=== PATIENT | male | born 1940 | race Caucasian/White ===

== ENCOUNTER 2017-10-11 18:10 | Emergency (ER) | payer OTHER ==
[~2017-10-11] VITALS: Ht 180.3 cm; Wt 140.6 kg
--- OUTSIDE RECORDS SUMMARY | ~2017-10-11 | XMS | Clinical Summary ---
Demographics + + + | Address | [address] | | | [place] [address] | + + + | Home Phone | | + + + | Preferred Language | Unknown | + + + | Marital Status | Single | + + + | Denominational Affiliation | Unknown | + + + | Race | Unknown | + + + | Ethnic Group | Other Race | + + + Author + + + | Author | NON REVENUE LOCATIONS | + + + | Organization | NON REVENUE LOCATIONS | + + + | Address | Unknown | + + + | Phone | Unavailable | + + + Care Team Providers + +------+ + | Care Rehab Nurse Name | Role | Phone | + +------+ + | No Pcp Per Patient | PP | Unavailable | + +------+ + Source Comments BEBETO is fully live on both [facility] and [facility] In[facility] Allergies Not on File Current Medications Not on file Active Problems Not on file Social History + +-------+ +--------+------+ | Tobacco Use | Types | Packs/Day | Years | Date | | | | | Used | | + +-------+ +--------+------+ | Never Assessed | | | | | + +-------+ +--------+------+ + + + | Sex Assigned at | Date Recorded | | | | + + + | Not on file | | + + + Plan of Treatment + + + + + | Health Maintenance | Due Date | Last Done | Comments | + + + + + | INFLUENZA VACCINE | | | | | (FLU SHOT) | 7 | | | + + + + + Results Not on filefrom Last 3 Months"
--- OUTSIDE RECORDS SUMMARY | ~2017-10-11 | XMS | Clinical Summary ---
Demographics + + + | Address | [address] | | | [place] [address] | + + + | Home Phone | | + + + | Preferred Language | Unknown | + + + | Marital Status | Single | + + + | Lutheran Affiliation [...] Team Providers + +------+ + | Care News Internship Name | Role | Phone | + +------+ + | No Pcp Per Patient | PP | Unavailable | + +------+ + Source Comments [facility] both [facility] and [facility] Allergies Not on File Current Medications Not [...]
[~2017-10-11 18:10] MED LIST: ALLOPURINOL100 MG PO; AMLODIPINE BESYL5 MG PO; COZAAR100 MG PO; CYCLOBENZAPRINE10 MG PO; FLUOXETINE HCL20 MG PO; GABAPENTIN300 MG PO; GLIPIZIDE XL10 MG PO; HYDROCHLOROTHIA25 MG PO; LANTUS100 UNITS/ SUB-Q; LUBRICANT EYE1 EACH OP; METOPROLOL TART50 MG PO; MINIPRESS5 MG PO; OMEPRAZOLE20 MG PO; OXYCODON-ACETA1 EAC2 PO; PRAVACHOL40 MG PO; SUMATRIPTAN SUC50 MG PO; SYNTHROID100 MCG PO; TRAZODONE HCL150 MG PO; VITAMIN B-121000 MCG PO; WARFARIN SODIUM5 MG PO; XARELTO10 MG PO
[2017-10-11] MEDS ORDERED: NORCO 5-325 TA1 EACH PO (18:47)
== END 2017-10-11 19:05 | disposition home or self-care (01) ==
LOC: ED 18:10
PROC: 2W3PX1Z Immobilization of Left Upper Leg using Splint (ICD-10-PCS; principal; 2017-10-11)
DX: S83.92XA Sprain of unspecified site of left knee, initial encounter (principal); E11.40 Type 2 diabetes mellitus with diabetic neuropathy, unspecified; I10 Essential (primary) hypertension; E03.9 Hypothyroidism, unspecified; F41.8 Other specified anxiety disorders; E66.9 Obesity, unspecified; Z79.899 Other long term (current) drug therapy; Z79.4 Long term (current) use of insulin; W19.XXXA Unspecified fall, initial encounter
CPT/HCPCS: 29505; 73560; 99283

== ENCOUNTER 2021-04-07 14:57 | Emergency (ER) | payer OTHER ==
[~2021-04-07] VITALS: Ht 180.3 cm; Wt 127.5 kg
[~2021-04-07 14:57] MED LIST changes: +BUSPIRONE HCL10 MG PO; +HYDROXYZINE HCL50 MG PO; +INSULIN SYRING1 EA11; +MECLIZINE HCL25 MG PO; +METOPROLOL TART25 MG PO; +NORCO 5-325 TA1 EACH PO
== END 2021-04-07 20:13 | disposition home or self-care (01) ==
LOC: ED 14:57
DX: U07.1 COVID-19 (principal); E11.9 Type 2 diabetes mellitus without complications; I10 Essential (primary) hypertension; M10.9 Gout, unspecified; E03.9 Hypothyroidism, unspecified; E66.9 Obesity, unspecified; Z87.891 Personal history of nicotine dependence; Z79.899 Other long term (current) drug therapy
CPT/HCPCS: 71045; 80053; 85025; 99285-25; C9803; M0243; Q0244; U0003

== ENCOUNTER 2023-04-29 15:23 | Emergency (ER) | payer OTHER ==
[~2023-04-29] VITALS: Ht 180.3 cm; Wt 127.5 kg
--- OUTSIDE RECORDS SUMMARY | ~2023-04-29 | XMS | Continuity of Care Document ---
Demographics + + + | Address | [address] | | | [place] [address] | + + + | Preferred Language | Unknown | + + + | Marital Status | | + + + | Lutheran Affiliation | Unknown | + + + | Race | White | + + + | Ethnic Group | Not or | + + + Author + + + | Author | [facility] | + + + | Organization | [facility] | + + + | Address | [address] | | | [place] [address] | + + + | Phone | | + + + Care Team Providers + + + + | Care Director Biomedical Engineering Name | Role | Phone | + + + + Unavailable | Unavailable | + + + + Unavailable | Unavailable | + + + + Allergies No information. Encounters No information. Functional Status No information. Immunizations No information. Medications + + + + | date | description | facility | + + + + | 2013-12-07 00:00 | OXYCODONE | [facility] | | | HCL/ACETAMINOPHEN | | + + + + | 2023-02-09 00:00 | RIVAROXABAN | [facility] | + + + + | 2023-02-09 00:00 | CARBOXYMETHYLCELLULOSE | [facility] | | | SODIUM | | + + + + | 2023-02-09 00:00 | ALLOPURINOL | [facility] | + + + + | 2023-02-09 00:00 | AMLODIPINE BESYLATE | [facility] | + + + + | 2023-02-09 00:00 | OMEPRAZOLE | [facility] | + + + + | 2023-02-09 00:00 | PRAZOSIN HCL | [facility] | + + + + | 2023-02-09 00:00 | CYANOCOBALAMIN (VITAMIN | [facility] | | | B-12) | | + + + + | 2023-02-09 00:00 | FLUOXETINE HCL | [facility] | + + + + | 2023-02-09 00:00 | GABAPENTIN | [facility] | + + + + | 2023-02-09 00:00 | HYDROCHLOROTHIAZIDE | [facility] | + + + + | 2023-02-09 00:00 | SUMATRIPTAN SUCCINATE | [facility] | + + + + | 2023-02-09 00:00 | GLIPIZIDE | [facility] | + + + + | 2013-12-07 00:00 | CYCLOBENZAPRINE HCL | [facility] | + + + + | 2023-02-09 00:00 | WARFARIN SODIUM | [facility] | + + + + | 2023-02-09 00:00 | TRAZODONE HCL | [facility] | + + + + | 2017-10-11 00:00 | HYDROCODONE | [facility] | | | BIT/ACETAMINOPHEN | | + + + + | 2023-02-09 00:00 | BUSPIRONE HCL | [facility] | + + + + | 2023-02-09 00:00 | METOPROLOL TARTRATE | [facility] | + + + + | 2023-02-09 00:00 | PRAVASTATIN SODIUM | [facility] | + + + + | 2023-02-09 00:00 | LEVOTHYROXINE SODIUM | [facility] | + + + + | 2023-02-09 00:00 | LOSARTAN POTASSIUM | [facility] | + + + + | 2023-02-09 00:00 | HYDROXYZINE HCL | [facility] | + + + + | 2023-02-09 00:00 | MECLIZINE HCL | [facility] | + + + + Problems + + + + | date | description | facility | + + + + | 2017-10-11 00:00 | Sprain of left knee | [facility] | + + + + | 2021-04-07 00:00 | Infection due to severe | [facility] | | | acute respiratory syndrome | | | | coronavirus 2 (SARS-CoV-2) | | + + + + | 2023-02-09 00:00 | Chest pain | [facility] | + + + + | 2023-02-09 13:16 | HYPOTHYROIDISM, | [facility] | | | UNSPECIFIED | | + + + + | 2023-02-09 13:16 | TYPE 2 DIABETES MELLITUS | [facility] | | | WITHOUT COMPLICATIONS | | + + + + | 2023-02-09 13:16 | OBESITY, UNSPECIFIED | [facility] | + + + + | 2023-02-09 13:16 | Essential (primary) | [facility] | | | hypertension | | + + + + | 2023-02-09 13:16 | OTHER CHEST PAIN | [facility] | + + + + | 2023-02-09 13:16 | CHIEF OPERATIONS OFFICER (CURRENT) USE OF | [facility] | | | ANTITHROMBOTICS/ANTIPLA | | + + + + | 2023-02-09 13:16 | HORMONE REPLACEMENT | [facility] | | | THERAPY | | + + + + | 2023-02-09 13:16 | OTHER CARE HOME (CURRENT) | [facility] | | | DRUG THERAPY | | + + + + | 2023-02-09 13:16 | PERSONAL HISTORY OF | [facility] | | | NICOTINE DEPENDENCE | | + + + + Procedures No information. Results/Labs +--------+--------+ +---------+--------+---------+ | test | date | facility | value | unit | notes | +--------+--------+ +---------+--------+---------+ + + | Result panel 1 | + + + + + +-------+ + + | | 2023-02-09 | [facility] | 8.0 | (missing) | (missing) | | (unavailable | [facility]40:07 [facility] | | | | + + + +-------+ + + + + | Result panel 2 | + + + + + +--------+ + + | | 2023-02-09 | [facility] | 50.4 | (missing) | (missing) | | (unavailable | [facility] | | | | + + + +--------+ + + + + | Result panel 3 | + + + + + +--------+ + + | | 2023-02-09 | [facility] | 38.2 | (missing) | (missing) | | (unavailable | [facility] | | | | + + + +--------+ + + + + | Result panel 4 | + + + + + +-------+ + + | | 2023-02-09 | [facility] | 8.2 | (missing) | (missing) | | (unavailable | [facility] | | | | + + + +-------+ + + + + | Result panel 5 | + + + + + +-------+ + + | | 2023-02-09 | [facility] | 2.4 | (missing) | (missing) | | (unavailable | [facility] | | | | + + + +-------+ + + + + | Result panel 6 | + + + + + +-------+ + + | | 2023-02-09 | [facility] | 0.8 | (missing) | (missing) | | (unavailable | [facility] | | | | + + + +-------+ + + + + | Result panel 7 | + + + + + +-------+---------+ + | | 2023-02-09 | [facility] | 272 | mg/dL | (missing) | | (unavailable | [facility]40[facility]07 [facility] | | | | + + + +-------+---------+ + + + | Result panel 8 | + + + + + +------+---------+ + | | 2023-02-09 | [facility] | 16 | mg/dL | (missing) | | (unavailable | [facility] | | | | + + + +------+---------+ + + + | Result panel 9 | + + + + + +--------+---------+ + | | 2023-02-09 | [facility] | 1.29 | mg/dL | (missing) | | (unavailable | [facility] | | | | + + + +--------+---------+ + + + | Result panel 10 | + + + + + +--------+ + + | | 2023-02-09 | [facility] | 5.09 | (missing) | (missing) | | (unavailable | [facility] | | | | + + + +--------+ + + + + | Result panel 11 | + + + + + +------+ + + | | 2023-02-09 | [facility] | 56 | (missing) | (missing) | | (unavailable | [facility] | | | | + + + +------+ + + + + | Result panel 12 | + + + + + +---------+ + + | | 2023-02-09 | [facility] | 12.40 | (missing) | (missing) | | (unavailable | [facility] | | | | + + + +---------+ + + + + | Result panel 13 | + + + + + +-------+ + + | | 2023-02-09 | [facility] | 138 | (missing) | (missing) | | (unavailable | [facility]40[facility]07 [facility] | | | | + + + +-------+ + + + + | Result panel 14 | + + + + + +-------+ + + | | 2023-02-09 | [facility] | 4.5 | (missing) | (missing) | | (unavailable | [facility]40[facility]07 [facility] | | | | + + + +-------+ + + + + | Result panel 15 | + + + + + +-------+ + + | | 2023-02-09 | [facility] | 103 | (missing) | (missing) | | (unavailable | [facility]40[facility]07 [facility] | | | | + + + +-------+ + + + + | Result panel 16 | + + + + + +------+ + + | | 2023-02-09 | [facility] | 25 | (missing) | (missing) | | (unavailable | [facility]40[facility]07 [facility] | | | | + + + +------+ + + + + | Result panel 17 | + + + + + +--------+ + + | | 2023-02-09 | [facility] | 14.5 | (missing) | (missing) | | (unavailable | [facility]40[facility] | | | | + + + +--------+ + + + + | Result panel 18 | + + + + + +-------+---------+ + | | 2023-02-09 | [facility] | 8.4 | mg/dL | (missing) | | (unavailable | [facility]40[facility]07 [facility] | | | | + + + +-------+---------+ + + + | Result panel 19 | + + + + + +-------+---------+ + | | 2023-02-09 | [facility] | 1.8 | mg/dL | (missing) | | (unavailable | [facility]40[facility]07 [facility] | | | | + + + +-------+---------+ + + + | Result panel 20 | + + + + + +-------+ + + | | 2023-02-09 | [facility] | 6.4 | (missing) | (missing) | | (unavailable | [facility]40[facility]07 [facility] | | | | + + + +-------+ + + + + | Result panel 21 | + + + + + +--------+ + + | | 2023-02-09 | [facility] | 15.0 | (missing) | (missing) | | (unavailable | [facility]40[facility]07 [facility] | | | | + + + +--------+ + + + + | Result panel 22 | + + + + + +-------+ + + | | 2023-02-09 | [facility] | 3.2 | (missing) | (missing) | | (unavailable | [facility]40[facility]07 [facility] | | | | + + + +-------+ + + + + | Result panel 23 | + + + + + +-------+ + + | | 2023-02-09 | [facility] | 3.2 | (missing) | (missing) | | (unavailable | [facility]40[facility]07 [facility] | | | | + + + +-------+ + + + + | Result panel 24 | + + + + + +--------+ + + | | 2023-02-09 | [facility] | 1.00 | (missing) | (missing) | | (unavailable | [facility]40[facility]07 [facility] | | | | + + + +--------+ + + + + | Result panel 25 | + + + + + +-------+ + + | | 2023-02-09 | [facility] | 0.7 | (missing) | (missing) | | (unavailable | [facility] | | | | + + + +-------+ + + + + | Result panel 26 | + + + + + +------+ + + | | 2023-02-09 | [facility] | 35 | (missing) | (missing) | | (unavailable | [facility]40[facility]07 [facility] | | | | + + + +------+ + + + + | Result panel 27 | + + + + + +------+ + + | | 2023-02-09 | [facility] | 31 | (missing) | (missing) | | (unavailable | [facility]40[facility]07 [facility] | | | | + + + +------+ + + + + | Result panel 28 | + + + + + +------+ + + | | 2023-02-09 | [facility] | 47 | (missing) | (missing) | | (unavailable | [facility]40:07 [facility] | | | | + + + +------+ + + + + | Result panel 29 | + + + + + +--------+ + + | | 2023-02-09 | [facility] | 14.9 | (missing) | (missing) | | (unavailable | [facility]40[facility]07 [facility] | | | | + + + +--------+ + + + + | Result panel 30 | + + + + + +--------+ + + | | 2023-02-09 | [facility] | 43.9 | (missing) | (missing) | | (unavailable | [facility]40[facility]07 [facility] | | | | + + + +--------+ + + + + | Result panel 31 | + + + + + +--------+ + + | | 2023-02-09 | [facility] | 86.2 | (missing) | (missing) | | (unavailable | [facility]40[facility]07 [facility] | | | | + + + +--------+ + + + + | Result panel 32 | + + + + + +--------+ + + | | 2023-02-09 | [facility] | 29.4 | (missing) | (missing) | | (unavailable | [facility]40[facility]07 [facility] | | | | + + + +--------+ + + + + | Result panel 33 | + + + + + +--------+ + + | | 2023-02-09 | [facility] | 34.1 | (missing) | (missing) | | (unavailable | [facility]40[facility]07 [facility] | | | | + + + +--------+ + + + + | Result panel 34 | + + + + + +--------+ + + | | 2023-02-09 | [facility] | 13.8 | (missing) | (missing) | | (unavailable | [facility]40[facility]07 [facility] | | | | + + + +--------+ + + + + | Result panel 35 | + + + + + +-------+ + + | | 2023-02-09 | [facility] | 221 | (missing) | (missing) | | (unavailable | [facility]40[facility]07 [facility] | | | | + + + +-------+ + + + + | Result panel 36 | + + + + + +--------+ + + | | 2023-02-09 | [facility] | 13.3 | (missing) | (missing) | | (unavailable | [facility]00:07 [facility] | | | | + + + +--------+ + + + + | Result panel 37 | + + + + + +--------+ + + | | 2023-02-09 | [facility] | 1.07 | (missing) | (missing) | | (unavailable | [facility]00[facility]07 [facility] | | | | + + + +--------+ + + Social History No information. Vital Signs + + + +---------+ | date | measurement | value | units | + + + +---------+ | 2023-02-09 00:00 | BMI | 39.2 | kg/m2 | + + + +---------+ | 2023-02-09 00:00 | BP_diastolic | 65 | mmHg | + + + +---------+ | 2023-02-09 00:00 | BP_systolic | 141 | mmHg | + + + +---------+ | 2023-02-09 00:00 | heart_rate | 79 | /min | + + + +---------+ | 2023-02-09 00:00 | height_metric | 180.34 | cm | + + + +---------+ | 2023-02-09 00:00 | height_standard | 71 | in | + + + +---------+ | 2023-02-09 00:00 | o2_saturation | 98 | % | + + + +---------+ | 2023-02-09 00:00 | respiration_rate | 16 | /min | + + + +---------+ | 2023-02-09 00:00 | temperature_metric | 37.06 | C | | | | | | + + + +---------+ | 2023-02-09 00:00 | | 98.7 | F | | | temperature_standar | | | | | d | | | + + + +---------+ | 2023-02-09 00:00 | weight_metric | 127.46 | kg | + + + +---------+ | 2023-02-09 00:00 | weight_standard | 281 | lb | + + + +---------+"
[2023-04-29] MEDS ORDERED: ELIQUIS5 MG PO (16:14)
[2023-04-29] MEDS ORDERED: ASPIRIN81 MG PO (16:14)
[2023-04-29] MEDS ORDERED: LANTUS100 UNITS/ SUB-Q (16:16)
[2023-04-29] MEDS ORDERED: LIDOCAINE1 EACH TD (16:17)
[2023-04-29] MEDS ORDERED: MELATONIN3 MG PO (16:18)
[2023-04-29] MEDS ORDERED: REMERON15 MG PO (16:18)
[2023-04-29] MEDS ORDERED: EFFEXOR XR37.5 MG PO (16:19)
[2023-04-29] MEDS ORDERED: TERBINAFINE15 G1 TOP (16:19)
[2023-04-29] MEDS ORDERED: CEPHALEXIN500 M1 PO (17:06)
[2023-04-29 17:33] VITALS: BP 160/62
== END 2023-04-29 17:34 | disposition home or self-care (01) ==
LOC: ED 15:23
DX: S92.412A Displaced fracture of proximal phalanx of left great toe, initial encounter for closed fracture (principal); E11.42 Type 2 diabetes mellitus with diabetic polyneuropathy; I10 Essential (primary) hypertension; E03.9 Hypothyroidism, unspecified; E66.9 Obesity, unspecified; I48.91 Unspecified atrial fibrillation; F32.A Depression, unspecified; F41.9 Anxiety disorder, unspecified; Z79.4 Long term (current) use of insulin; Z79.01 Long term (current) use of anticoagulants; Z79.890 Hormone replacement therapy; Z79.899 Other long term (current) drug therapy; Z87.891 Personal history of nicotine dependence; Z68.39 Body mass index [BMI] 39.0-39.9, adult; X58.XXXA Exposure to other specified factors, initial encounter
CPT/HCPCS: 73630

== ENCOUNTER 2024-01-30 13:46 | Emergency (ER) | payer OTHER ==
[~2024-01-30] VITALS: Ht 180.3 cm; Wt 115.0 kg
[~2024-01-30 13:46] MED LIST changes: +AMOX TR-K CLV1 EAC1 PO; +ASPIRIN81 MG PO; +BUSPIRONE HCL5 MG PO; +CEPHALEXIN500 M1 PO; +DAPTOMYCIN500 MG IV; +DOXYCYCLINE HY100 MG PO; +EFFEXOR XR75 MG PO; +ELIQUIS5 MG PO; +GABAPENTIN100 MG PO; +HUMALOG100 UNITS/ SUB-Q; +KEPPRA500 MG PO; +LEVOTHYROXINE100 MCG PO; +LIDOCAINE1 EACH TD; +LOSARTAN POTASS25 MG PO; +MELATONIN3 MG PO; +MINIPRESS2 MG PO; -MINIPRESS5 MG PO; +MIRTAZAPINE15 MG PO; +PANTOPRAZOLE SO40 MG PO; +PRAZOSIN HCL1 MG PO; +REMERON30 MG PO; +TERBINAFINE15 G1 TOP; +VITAMIN D325 MCG PO
--- OUTSIDE RECORDS SUMMARY | 2024-01-30 13:48 | XMS ---
PreManage Notification: HALIMA MCGHEE Security Curb Hop Events No recent Security Events currently on file CRITERIA MET - Group Notification - [facility] - Has Care Guidelines CARE PROVIDERS MÓNICA ALMANZA Nurse Practitioner: Family Current PHONE: [phone] FAITH SHARP Animal Rescuer Current TIMMY GAMING PHONE: [phone] Guidelines Source: [facility] Guidelines Date: 11/20/2023 Care Coordination: Two weeks ago patient went AMA from SNF. \T\nbsp;He has been noncompliant with PCP follow up visits. \T\nbsp;[facility] is [facility]. \T\nbsp;Due to noncompliance the local SNFs are turning this patient down for verbal and physically aggressive behavior. \T\nbsp;Please contact case management when he needs disposition from the ER. \T\nbsp; E.D. VISIT COUNT (12 MO.) 7 [facility] TOTAL 7 NOTE: Visits indicate total known visits. ED/UCC VISIT TRACKING (12 MO.) 01/30/2024 13:47 [facility] [place] TYPE: Emergency COMPLAINT: - SWALLOWING PROBLEM 12/11/2023 13:26 [facility] [place] TYPE: Emergency COMPLAINT: - FALL DIAGNOSES: - Encounter for change or removal of surgical wound dressing - Essential (primary) hypertension - Hormone replacement therapy - Hypothyroidism, unspecified - longterm (current) use of aspirin - Obesity, unspecified - Other custodial (current) drug therapy - Personal history of nicotine dependence - Type 2 diabetes mellitus without complications 11/25/2023 14:47 [facility] [place] TYPE: Emergency COMPLAINT: - FALL DIAGNOSES: - Acquired absence of left leg below knee - Dehiscence of amputation stump - Essential (primary) hypertension - long term acute care registered nurse (current) use of anticoagulants - longterm (current) use of aspirin - longterm (current) use of insulin - Obesity, unspecified - Other custodial (current) drug therapy - Personal history of nicotine dependence - Type 2 diabetes mellitus without complications 11/11/2023 16:41 [facility] [place] TYPE: Emergency COMPLAINT: - EXTREMITY 11/01/2023 21:13 [facility] [place] TYPE: Emergency COMPLAINT: - WEAKNESS 04/29/2023 15:24 [facility] [place] TYPE: Emergency COMPLAINT: - LT TOE INJURY DIAGNOSES: - Anxiety disorder, unspecified - Body mass index [BMI] 39.0-39.9, adult - Depression, unspecified - Displaced fracture of proximal phalanx of left great toe, initial encounter for closed fracture - Essential (primary) hypertension - Exposure to other specified factors, initial encounter - Hormone replacement therapy - Hypothyroidism, unspecified - longterm (current) use of anticoagulants - longterm (current) use of insulin - Obesity, unspecified - Other custodial (current) drug therapy - Pain in left toe(s) - Personal history of nicotine dependence - Type 2 diabetes mellitus with diabetic polyneuropathy - Unspecified atrial fibrillation 02/09/2023 13:16 [facility] [place] TYPE: Emergency COMPLAINT: - CHEST PAIN DIAGNOSES: - Essential (primary) hypertension - Hormone replacement therapy - Hypothyroidism, unspecified - longterm (current) use of antithrombotics/antiplatelets - Obesity, unspecified - Other chest pain - Other custodial (current) drug therapy - Personal history of nicotine dependence - Type 2 diabetes mellitus without complications INPATIENT VISIT TRACKING (12 MO.) 11/13/2023 08:19 [facility] [place] TYPE: [facility] COMPLAINT: - CELLULITIS DIAGNOSES: - Anxiety disorder, unspecified - Anxiety disorder, unspecified - Body mass index [BMI] 30.0-30.9, adult - Body mass index [BMI] 30.0-30.9, adult - Cataract extraction status, right eye - Cataract extraction status, right eye - Cellulitis of left lower limb - Depression, unspecified - Depression, unspecified - Essential (primary) hypertension - Essential (primary) hypertension - Gout, unspecified - Gout, unspecified - Hormone replacement therapy - Hormone replacement therapy - Hypothyroidism, unspecified - Hypothyroidism, unspecified - Insomnia, unspecified - Insomnia, unspecified - long term acute care registered nurse (current) use of anticoagulants - long term acute care registered nurse (current) use of anticoagulants - long term acute care registered nurse (current) use of aspirin - long term acute care registered nurse (current) use of aspirin - longterm (current) use of insulin - longterm (current) use of insulin - Obesity, unspecified - Obesity, unspecified - Other custodial (current) drug therapy - Other custodial (current) drug therapy - Other osteomyelitis, ankle and foot - Other osteomyelitis, ankle and foot - Other specified postprocedural states - Other specified postprocedural states - Personal history of nicotine dependence - Personal history of nicotine dependence - Type 2 diabetes mellitus with diabetic neuropathy, unspecified - Type 2 diabetes mellitus with diabetic neuropathy, unspecified - Type 2 diabetes mellitus with foot ulcer - Type 2 diabetes mellitus with foot ulcer - Type 2 diabetes mellitus with other specified complication - Type 2 diabetes mellitus with other specified complication - Unspecified atrial fibrillation - Unspecified atrial fibrillation 11/02/2023 00:54 [facility] TYPE[facility] COMPLAINT: - CELLULITIS DIAGNOSES: - Anxiety disorder, unspecified - Anxiety disorder, unspecified - Cataract extraction status, right eye - Cataract extraction status, right eye - Cellulitis of left lower limb - Cutaneous abscess of left foot - Cutaneous abscess of left foot - Depression, unspecified - Depression, unspecified - Elevation of levels of liver transaminase levels - Elevation of levels of liver transaminase levels - Essential (primary) hypertension - Essential (primary) hypertension - Gout, unspecified - Gout, unspecified - Hormone replacement therapy - Hormone replacement therapy - Hypothyroidism, unspecified - Hypothyroidism, unspecified - Insomnia, unspecified - Insomnia, unspecified - long term acute care registered nurse (current) use of antibiotics - longterm (current) use of antibiotics - longterm (current) use of anticoagulants - longterm (current) use of anticoagulants - longterm (current) use of aspirin - long term acute care registered nurse (current) use of aspirin - longterm (current) use of insulin - longterm (current) use of insulin - 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 - 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 - Obesity, unspecified - Obesity, unspecified - Other chronic pain - Other chronic pain - Other long wall shear operator (current) drug therapy - Other long wall shear operator (current) drug therapy - Other specified postprocedural states - Other specified postprocedural states - Personal history of nicotine dependence - Personal history of nicotine dependence - Type 2 diabetes mellitus with diabetic neuropathy, unspecified - Type 2 diabetes mellitus with diabetic neuropathy, unspecified - Type 2 diabetes mellitus with foot ulcer - Type 2 diabetes mellitus with foot ulcer - Type 2 diabetes mellitus with hyperglycemia - Type 2 diabetes mellitus with hyperglycemia - Type 2 diabetes mellitus with other skin complications - Type 2 diabetes mellitus with other skin complications - Unspecified atrial fibrillation - Unspecified atrial fibrillation - Unspecified dementia, mild, without behavioral disturbance, psychotic disturbance, mood disturbance, and anxiety - Unspecified dementia, mild, without behavioral disturbance, psychotic disturbance, mood disturbance, and anxiety - Unspecified fall, initial encounter - Unspecified fall, initial encounter [email or web address]
[2024-01-30 15:34] VITALS: BP 143/94
== END 2024-01-30 15:34 | disposition home or self-care (01) ==
LOC: ED 13:46
DX: R13.10 Dysphagia, unspecified (principal); Z80.0 Family history of malignant neoplasm of digestive organs; E11.40 Type 2 diabetes mellitus with diabetic neuropathy, unspecified; I10 Essential (primary) hypertension; E03.9 Hypothyroidism, unspecified; I48.91 Unspecified atrial fibrillation; F32.A Depression, unspecified; F41.9 Anxiety disorder, unspecified; E66.9 Obesity, unspecified; Z87.891 Personal history of nicotine dependence; Z79.899 Other long term (current) drug therapy; Z79.01 Long term (current) use of anticoagulants; Z79.4 Long term (current) use of insulin; Z79.82 Long term (current) use of aspirin
CPT/HCPCS: 99283

== ENCOUNTER 2024-10-13 16:58 | Emergency (ER) | payer OTHER ==
[~2024-10-13] VITALS: Ht 180.3 cm; Wt 119.7 kg
--- OUTSIDE RECORDS SUMMARY | 2024-10-13 17:04 | XMS ---
PreManage Notification: HALIMA MCGHEE Security Preparation Supervisor Canning Events No recent Security Events currently on file CRITERIA MET - [place] [facility] [place] PROVID[place] MÓNICA ALMANZA Nurse Practitioner: Family Current PHONE: [phone] PEMA STEVENS Physician Software Engineer Intern Current [place]OH[place] PHONE: [phone] LUCY QUINTANILLA Nurse Practitioner: Adult Health Current [place] PHONE: [phone] FAITH SHARP Investment Sales Assistant Current TIMMY GAMING PHONE: [phone] Guidelines Source: [facility] Guidelines Date: 11/20/2023 Care Coordination: Two weeks ago patient went AMA from SNF. \T\nbsp;He has been noncompliant with PCP follow up visits. \T\nbsp;[facility] is [facility]. \T\nbsp;Due to noncompliance the local SNFs are turning this patient down for verbal and physically aggressive behavior. \T\nbsp;Please contact case management when he needs disposition from the ER. \T\nbsp; E.Elijah. VISIT COUNT (12 MO.) 6 [facility]. TOTAL 6 NOTE: Visits indicate total known visits. ED/UCC VISIT TRACKING (12 MO.) 10/13/2024 16:58 [facility] [place] TYPE: Emergency COMPLAINT: - FOOT PAIN 01/30/2024 13:47 [facility] [place] TYPE: Emergency COMPLAINT: - SWALLOWING PROBLEM DIAGNOSES: - Anxiety disorder, unspecified - Depression, unspecified - Dysphagia, unspecified - Essential (primary) hypertension - Family history of malignant neoplasm of digestive organs - Hypothyroidism, unspecified - retirement (current) use of anticoagulants - retirement (current) use of aspirin - terminal gauger (current) use of insulin - Obesity, unspecified - Other correction (current) drug therapy - Personal history of nicotine dependence - Type 2 diabetes mellitus with diabetic neuropathy, unspecified - Unspecified atrial fibrillation 12/11/2023 13:26 [facility] [place] TYPE: Emergency COMPLAINT: - FALL DIAGNOSES: - Encounter for change or removal of surgical wound dressing - Essential (primary) hypertension - Hormone replacement therapy - Hypothyroidism, unspecified - retirement (current) use of aspirin - Obesity, unspecified - Other watermelon harvesting supervisor (current) drug therapy - Personal history of nicotine dependence - Type 2 diabetes mellitus without complications 11/25/2023 14:47 [facility] [place] TYPE: Emergency COMPLAINT: - FALL DIAGNOSES: - Acquired absence of left leg below knee - Dehiscence of amputation stump - Essential (primary) hypertension - retirement (current) use of anticoagulants - terminal gauger (current) use of aspirin - retirement (current) use of insulin - Obesity, unspecified - Other watermelon harvesting supervisor (current) drug therapy - Personal history of nicotine dependence - Type 2 diabetes mellitus without complications 11/11/2023 16:41 [facility] [place] TYPE: Emergency COMPLAINT: - EXTREMITY 11/01/2023 21:13 [facility] [place] TYPE: Emergency COMPLAINT: - WEAKNESS INPATIENT VISIT TRACKING (12 MO.) 11/13/2023 08:19 [...] - Insomnia, unspecified - Insomnia, unspecified - retirement (current) use of anticoagulants - retirement (current) use of anticoagulants - retirement (current) use of aspirin - retirement (current) use of aspirin - terminal gauger (current) use of insulin - retirement (current) use of insulin - Obesity, unspecified - Obesity, unspecified - Other watermelon harvesting supervisor (current) drug therapy - Other correction (current) drug therapy - Other osteomyelitis, ankle [...] - Insomnia, unspecified - Insomnia, unspecified - retirement (current) use of antibiotics - terminal gauger (current) use of antibiotics - terminal gauger (current) use of anticoagulants - retirement (current) use of anticoagulants - retirement (current) use of aspirin - terminal gauger (current) use of aspirin - terminal gauger (current) use of insulin - terminal gauger (current) use of insulin - 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
[2024-10-13 17:38] LABS: BASOPHILS 0.9 % (0-2); EOSINOPHILS 3.2 % (0-6); HEMATOCRIT 44.8 % (35.0-50.0); HEMOGLOBIN 14.8 g/dL (12.0-18.0); LYMPHOCYTES 39.6 % (24-44); MCHC 33.1 g/dl (30-36); MCV 93.5 fl (81-99); MONOCYTES 8.1 % (0-12); NEUTROPHILS 48.2 % (39-80); PLATELET COUNT 255 K/uL (140-440); RBC 4.79 M/ul (4.3-5.7); RDW 14.2 (10.5-15.0)
[2024-10-13 17:54] LABS: ALBUMIN 3.2 g/dL (3.4-5.0); ALBUMIN/GLOBULIN RATIO 0.91 (1.1-2.4); ANION GAP 13.8 (7-21); BILIRUBIN, TOTAL 0.8 mg/dL (0.2-1.0); BUN/CREATININE RATIO 18.36 (6.0-28.6); CALCIUM 9.1 mg/dL (8.5-10.1); CREATININE, SERUM 0.98 mg/dL (0.70-1.30); POTASSIUM 4.8 mmol/L (3.5-5.1); PROTEIN, TOTAL 6.7 g/dL (6.4-8.2)
[2024-10-13] MEDS ORDERED: CEPHALEXIN500 M1 PO (18:30)
[2024-10-13] MEDS ORDERED: CEPHALEXIN MONOHYDRATE 500 MG CAP PO ONE (18:30)
[2024-10-13 18:47] VITALS: BP 167/101
== END 2024-10-13 18:47 | disposition home or self-care (01) ==
LOC: ED 16:58
PROVIDERS: Emergency Medicine
DX: E11.621 Type 2 diabetes mellitus with foot ulcer (principal); L97.519 Non-pressure chronic ulcer of other part of right foot with unspecified severity; E11.40 Type 2 diabetes mellitus with diabetic neuropathy, unspecified; I10 Essential (primary) hypertension; E03.9 Hypothyroidism, unspecified; E66.9 Obesity, unspecified; Z87.891 Personal history of nicotine dependence; Z79.899 Other long term (current) drug therapy; Z79.4 Long term (current) use of insulin; Z79.82 Long term (current) use of aspirin; Z79.890 Hormone replacement therapy
CPT/HCPCS: 36415; 73630; 80053; 85025; 99283; A9270

== ENCOUNTER 2025-03-23 11:50 | Emergency (ER) | payer OTHER ==
[~2025-03-23] VITALS: Ht 180.3 cm; Wt 106.0 kg
[~2025-03-23 11:50] MED LIST changes: +FLOMAX0.4 MG PO
--- OUTSIDE RECORDS SUMMARY | 2025-03-23 11:57 | XMS ---
PreManage Notification: HALIMA MCGHEE Security Farm Manager Events No recent Security Events currently on file CRITERIA MET - Group Notification - [facility] - 2 Visits in 30 Days - [facility] - Has Care Guidelines CARE PROVIDERS MÓNICA ALMANZA Nurse Practitioner: Family Current PHONE: [phone] PEMA STEVENS Physician Professor Of Literature Current MOHAN PHONE: [phone] LUCY QUINTANILLA Nurse Practitioner: Adult Health [facility] PHONE: [phone] FAITH SHARP Cycle Touring Guide Current TIMMY GAMING PHONE: [phone] Guidelines Source: [facility] Guidelines Date: 11/20/2023 Care Coordination: Two weeks ago patient went AMA from SNF. \T\nbsp;He has been noncompliant with PCP follow up visits. \T\nbsp;He is a [facility] patient. \T\nbsp;Due to noncompliance the local SNFs are turning this patient down for verbal and physically aggressive behavior. \T\nbsp;Please contact case management when he needs disposition from the ER. \T\nbsp; E.D. VISIT COUNT (12 MO.) [address] Kelly Castellano (Stacey Ibarra) TOTAL 5 NOTE: Visits indicate total known visits. ED/UCC VISIT TRACKING (12 MO.) 03/23/2025 11:50 [facility] [place] COMPLAINT: - URINE PROBLEM 03/22/2025 19:[address] [facility] [place] TYPE: Emergency COMPLAINT: - CATH PROBLEM 03/21/2025 16:04 [facility] [place] COMPLAINT: - URINE PROBLEM DIAGNOSES: - Dysuria - Essential (primary) hypertension - Hypothyroidism, unspecified - intermodal dispatcher (current) use of aspirin - intermodal dispatcher (current) use of insulin - Other jail (current) drug therapy - Personal history of nicotine dependence - Retention of urine, unspecified - Type 2 diabetes mellitus with diabetic neuropathy, unspecified - Unspecified atrial fibrillation 11/11/2024 12:[place] [facility] TYPE: Emergency DIAGNOSES: - Local infection of the skin and subcutaneous tissue, unspecified - Type 2 diabetes mellitus with other skin complications - rt big toe issue - Toe Injury 10/13/2024 16:[address] [facility] [place] TYPE: Emergency COMPLAINT: - FOOT PAIN DIAGNOSES: - Essential (primary) hypertension - Hormone replacement therapy - Hypothyroidism, unspecified - group home (current) use of aspirin - group home (current) use of insulin - Non-pressure chronic ulcer of other part of right foot with unspecified severity - Obesity, unspecified - Other jail (current) drug therapy - Pain in right toe(s) - Personal history of nicotine dependence - Type 2 diabetes mellitus with diabetic neuropathy, unspecified - Type 2 diabetes mellitus with foot ulcer INPATIENT VISIT TRACKING (12 MO.) No inpatient visits to display in this time frame [email or web address]
[2025-03-23] MEDS ORDERED: LIDOCAINE 2% VISCOUS 6 ML SYR TOP ONE (12:15)
[2025-03-23 12:57] LABS: BASOPHILS 0.7 % (0.2-1.2); EOSINOPHILS 3.4 % (0.8-7.0); LYMPHOCYTES 40.2 % (21.8-53.1); MCH 30.7 PG (25.7-32.2); MCHC 33.3 g/dL (32.3-36.5); MCV 92.2 fL (79.0-92.2); MONOCYTES 8.4 % (5.3-12.2); NEUTROPHILS 47.1 % (34.0-67.9); RBC 4.76 M/uL (4.63-6.08)
[2025-03-23 13:13] LABS: ALT (SGPT) 16.0 U/L (14-59); AST (SGOT) 15.0 U/L (15-37); GLOMERULAR FILTRATION RATE,EST 53.0 mL/min (>60); PROTEIN, TOTAL 6.5 g/dL (6.4-8.2); UREA NITROGEN 20.0 mg/dL (7-18)
[2025-03-23 14:38] LABS: BLOOD/HGB, URINE LARGE (Negative); KETONE, URINE NEGATIVE (Negative); LEUK ESTERASE, URINE SMALL (negative); NITRITE, URINE NEGATIVE (negative)
[2025-03-23 14:47] LABS: EPITHELIAL CELLS, URINE SQUAMOUS 2+ /lpf (0-1+)
[2025-03-23 14:48] LABS: BACTERIA, URINE NONE SEEN /hpf (negative); CASTS, URINE NONE SEEN \\lpf; CRYSTALS, URINE CALCIUM OXALATE 1+ (0-1+); REFLEX CULTURE, URINE No (No)
[2025-03-23] MEDS ORDERED: SODIUM CHLORIDE 0.9% 1,000 ML IV PRN (16:00)
[2025-03-23] MEDS ORDERED: CIPRO250 MG PO (17:37)
[2025-03-23 17:55] VITALS: BP 129/74
== END 2025-03-23 17:56 | disposition home or self-care (01) ==
LOC: ED 11:50
PROVIDERS: Emergency Medicine
DX: R33.9 Retention of urine, unspecified (principal); E03.9 Hypothyroidism, unspecified; E11.9 Type 2 diabetes mellitus without complications; I10 Essential (primary) hypertension; G47.00 Insomnia, unspecified; I48.91 Unspecified atrial fibrillation; Z79.82 Long term (current) use of aspirin; Z79.899 Other long term (current) drug therapy; Z79.4 Long term (current) use of insulin; Z87.891 Personal history of nicotine dependence
CPT/HCPCS: 36415; 51702; 51798; 80053; 81001; 85025; 87088; 99283; J7030

== ENCOUNTER 2025-03-28 16:50 | Emergency (ER) | payer OTHER ==
[~2025-03-28] VITALS: Ht 180.3 cm; Wt 106.0 kg
[~2025-03-28 16:50] MED LIST changes: +CIPRO250 MG PO
--- OUTSIDE RECORDS SUMMARY | 2025-03-28 16:59 | XMS ---
PreManage Notification: HALIMA MCGHEE Security Personal Lines Underwriter Events No recent Security Events currently on file CRITERIA MET - 6 ED Visits in 6 Months - Group Notification - [facility] - 2 Visits in 30 Days - [facility] - Has Care Guidelines CARE PROVIDERS MÓNICA ALMANZA Nurse Practitioner: Family Current PHONE: [phone] PEMA STEVENS Physician Web Graphic Designer Current MOHAN PHONE: [phone] LUCY QUINTANILLA Nurse Practitioner: Adult Health Current [place] PHONE: [phone] FAITH SHARP Information Security Officer Current TIMMY GAMING PHONE: [phone] Guidelines Source: [facility] Guidelines Date: 11/20/2023 Care Coordination: Two weeks ago patient went AMA from SNF. \T\nbsp;He has been noncompliant with PCP follow up visits. \T\nbsp;He is [facility]. \T\nbsp;Due to noncompliance the local SNFs are turning this patient down for verbal and physically aggressive behavior. \T\nbsp;Please contact case management when he needs disposition from the ER. \T\nbsp; E.D. VISIT COUNT (12 MO.) 5 [facility] Kelly Castellano (Stacey Ibarra) TOTAL 6 NOTE: Visits indicate total known visits. ED/UCC VISIT TRACKING (12 MO.) 03/28/2025 16:52 [facility] [place] TYPE[place] Emergency COMPLAINT: - URINE PROBLEM 03/23/2025 11:50 [facility] [place] TYPE: Emergency COMPLAINT: - URINE PROBLEM DIAGNOSES: - Essential (primary) hypertension - Hypothyroidism, unspecified - Insomnia, unspecified - penitentiary (current) use of aspirin - intermodal owner operator truck driver (current) use of insulin - Other residential (current) drug therapy - Personal history of nicotine dependence - Retention of urine, unspecified - Type 2 diabetes mellitus without complications - Unspecified atrial fibrillation 03/22/2025 19:49 [facility] [place] TYPE: Emergency COMPLAINT: - CATH PROBLEM 03/21/2025 16:04 [facility] [place] TYPE: Emergency COMPLAINT: - URINE PROBLEM DIAGNOSES: - Dysuria - Essential (primary) hypertension - Hypothyroidism, unspecified - penitentiary (current) use of aspirin - penitentiary (current) use of insulin - Other adjunct faculty for medical terminology (current) drug therapy - Personal history of nicotine dependence - Retention of urine, unspecified - Type 2 diabetes mellitus with diabetic neuropathy, unspecified - Unspecified atrial fibrillation [facility]24 [facility]: [facility] DIAGNOSES: - Local infection of the skin and subcutaneous tissue, unspecified - Type 2 diabetes mellitus with other skin complications - rt big toe issue - Toe Injury [facility]13[facility]24 [facility] [place] [facility] COMPLAINT: - FOOT PAIN DIAGNOSES: - Essential (primary) hypertension - Hormone replacement therapy - Hypothyroidism, unspecified - penitentiary (current) use of aspirin - intermodal owner operator truck driver (current) use of insulin - Non-pressure chronic ulcer of other part of right foot with unspecified severity - Obesity, unspecified - Other residential (current) drug therapy - Pain in right toe(s) - Personal history of nicotine dependence - Type 2 diabetes mellitus with diabetic neuropathy, unspecified - Type 2 diabetes mellitus with foot ulcer INPATIENT VISIT TRACKING (12 MO.) No inpatient visits to display in this time frame [email or web address]
[2025-03-28 18:16] VITALS: BP 126/90
== END 2025-03-28 18:14 | disposition home or self-care (01) ==
LOC: ED 16:50
DX: Z46.6 Encounter for fitting and adjustment of urinary device (principal); E11.9 Type 2 diabetes mellitus without complications; I10 Essential (primary) hypertension; E11.40 Type 2 diabetes mellitus with diabetic neuropathy, unspecified; E03.9 Hypothyroidism, unspecified; I48.91 Unspecified atrial fibrillation; Z87.891 Personal history of nicotine dependence; Z79.01 Long term (current) use of anticoagulants; Z79.4 Long term (current) use of insulin; Z79.82 Long term (current) use of aspirin; Z79.890 Hormone replacement therapy; Z79.899 Other long term (current) drug therapy
CPT/HCPCS: 99283